=== PATIENT | male | born 1965 | race Hispanic/Latino ===

== ENCOUNTER 2023-12-19 14:30 | Inpatient (IN) | payer OTHER ==
[~2023-12-19 14:30] MED LIST: Iopamidol-370 76% 500 ML MDV (1 ML CHARGE) ONE
[2023-12-19 15:22] LABS: #Basophils 0.03 10x3/uL (0.0-0.2); #Eosinophils Less than 0.03 10x3/uL (0.0-0.7); %Basophils 0.5 % (0.0-1.0); %Eosinophils 0.2 % (0.0-10.0); %Monocytes 6.4 % (0.0-10.0); %Neutrophils 53.7 % (42.0-75.0); Hematocrit 40.8 % (42.0-52.0); Hemoglobin 13.3 g/dL (14.0-18.0); Mean Corpuscular HGB CONC 32.6 g/dL (32.0-36.0); Mean Corpuscular Hemoglobin 29.4 pg (27.0-31.0); Mean Corpuscular Volume 90.1 fL (78.0-98.0); Mean Platelet Volume 9.2 fL (7.4-10.4); Platelet Count 208 10x3/uL (130-400); RBC Distribution Width 16.9 % (11.5-14.5); Red Blood Cell (RBC) Count 4.53 mill/uL (4.70-6.10)
[2023-12-19 15:47] LABS: ALT (SGPT) 16 U/L (8-55); AST (SGOT) 21 U/L (5-34); Albumin 3.4 g/dL (3.5-5.0); Alkaline Phosphatase 68 U/L (40-110); Anion Gap 12 mmol/L (10-20); BUN (Urea Nitrogen) 17 mg/dL (8.4-25.7); Bilirubin, Total 0.1 mg/dL (0.2-1.2); Calc. Creatinine Clearance 0 mL/min (70-130); Calcium 8.6 mg/dL (7.8-10.44); Carbon Dioxide 20 mmol/L (22-29); Chloride 108 mmol/L (98-107); Estimated GFR 54; Globulin 3.4 g/dL (2.4-3.5); Glucose 108 mg/dL (70-105); Potassium 3.4 mmol/L (3.5-5.1); Protein, Total 6.8 g/dL (6.0-8.3); Sodium 137 mmol/L (136-145)
[2023-12-19 15:49] LABS: Troponin I 0.013 ng/mL (< 0.028)
[2023-12-19] MEDS ORDERED: Aspirin Chewable 81 MG TAB ONE (17:02)
[2023-12-19] MEDS ORDERED: Cefepime 2 GM VIAL ONE (17:02)
[2023-12-19] MEDS ORDERED: Sodium Chloride 0.9% 100 ML ONE (17:06)
[2023-12-19] MEDS ORDERED: Nitroglycerin 2% Ointment 1 INCH/1 GM Packet ONE (17:07)
[2023-12-19] MEDS ORDERED: Calcium Carbonate 500 MG ChewTAB PO PRN (17:32)
[2023-12-19] MEDS ORDERED: Ondansetron ODT 4 MG TAB PO PRN (17:32)
[2023-12-19] MEDS ORDERED: hydrALAZINE 20 MG/ML VIAL SLOW IVP PRN (17:32)
[2023-12-19 18:18] LABS: Troponin I 0.013 ng/mL (< 0.028)
[2023-12-19 19:53] VITALS: BMI 34.5
[2023-12-19] MEDS: Enoxaparin 40 MG (0.4 mL) SYRINGE SC SCH (20:10)
[2023-12-19] MEDS: Sodium Chloride 0.9% 1,000 ML IV SCH (20:10)
[2023-12-19] MEDS: Nicotine 21 MG PATCH TD SCH (20:10)
[2023-12-19] MEDS: Famotidine 20 MG TAB PO SCH (20:14)
[2023-12-19] MEDS: Vancomycin (BATCH) 2 GM in Premix 1 BAG IVPB SCH (20:36)
[2023-12-19] MEDS: Ketorolac Tromethamine 30 MG (1 mL) VIAL IVP PRN (20:45)
[2023-12-19 21:18] LABS: Troponin I 0.015 ng/mL (< 0.028)
[2023-12-19] MEDS: Nitroglycerin 2% Ointment 1 INCH/1 GM Packet TOP SCH (22:40)
[2023-12-19] MEDS: traMADol HCl 50 MG TAB PO PRN (23:06)
[2023-12-20] MEDS: Cefepime 1 GM in Sodium Chloride 0.9% 100 ML IVPB SCH (04:02)
[2023-12-20 04:35] LABS: #Basophils 0.04 10x3/uL (0.0-0.2); #Eosinophils Less than 0.03 10x3/uL (0.0-0.7); %Basophils 0.7 % (0.0-1.0); %Eosinophils 0.4 % (0.0-10.0); %Monocytes 8.3 % (0.0-10.0); %Neutrophils 33.4 % (42.0-75.0); Hematocrit 35.8 % (42.0-52.0); Hemoglobin 11.3 g/dL (14.0-18.0); Mean Corpuscular HGB CONC 31.6 g/dL (32.0-36.0); Mean Corpuscular Hemoglobin 29.6 pg (27.0-31.0); Mean Corpuscular Volume 93.7 fL (78.0-98.0); Mean Platelet Volume 8.9 fL (7.4-10.4); Platelet Count 185 10x3/uL (130-400); Red Blood Cell (RBC) Count 3.82 mill/uL (4.70-6.10)
[2023-12-20 04:48] LABS: Vancomycin, Random 11.4 ug/mL (See Comment)
[2023-12-20 04:50] LABS: ALT (SGPT) 12 U/L (8-55); AST (SGOT) 18 U/L (5-34); Albumin 2.9 g/dL (3.5-5.0); Alkaline Phosphatase 61 U/L (40-110); Anion Gap 11 mmol/L (10-20); BUN (Urea Nitrogen) 18 mg/dL (8.4-25.7); Bilirubin, Total 0.1 mg/dL (0.2-1.2); Calc. Creatinine Clearance 109 mL/min (70-130); Calcium 8.1 mg/dL (7.8-10.44); Carbon Dioxide 23 mmol/L (22-29); Cardiac Risk 5.9 (Less than 4.5); Chloride 109 mmol/L (98-107); Cholesterol 141 mg/dl (< 200 Desired); Estimated GFR 66; Globulin 2.9 g/dL (2.4-3.5); Glucose 112 mg/dL (70-105); HDL Cholesterol 24 mg/dL (>60 Neg Risk); Hemoglobin A1c 5.1 % (4.0-6.0); LDL Cholesterol, Calculated 86 mg/dL; Potassium 3.7 mmol/L (3.5-5.1); Protein, Total 5.8 g/dL (6.0-8.3); Sodium 139 mmol/L (136-145); Triglycerides 157 mg/dL (Less than 150)
[2023-12-20] MEDS: Vancomycin 1 GM in Premix 1 BAG IVPB SCH (05:41)
[2023-12-20] MEDS: Ondansetron PF 4 MG/2 ML Vial IVP PRN (05:48)
[2023-12-20] MEDS: Aspirin Chewable 81 MG TAB PO SCH (09:08)
[2023-12-20] MEDS: Enoxaparin 40 MG (0.4 mL) SYRINGE SC SCH (09:09)
[2023-12-20] MEDS ORDERED: Regadenoson 0.4 MG/5 ML SYRINGE ONE (11:44)
[2023-12-20] MEDS: Vancomycin (BATCH) 1.25 GM in Premix 1 BAG IVPB SCH (13:16)
[2023-12-20] MEDS: Cefepime 2 GM in Sodium Chloride 0.9% 100 ML IVPB SCH (16:00)
[2023-12-20] MEDS: Melatonin 3 MG TAB PO PRN (23:07)
[2023-12-21] MEDS: Acetaminophen 500 MG TAB PO PRN (08:51)
[2023-12-21 16:56] VITALS: BP 169/99; TEMP 97.8
== END 2023-12-21 17:06 | disposition home or self-care (01) | DRG 603 ==
LOC: ERS 14:30 → OBS 17:06 → OBSVTOIN 12-20 20:02
PROVIDERS: ADMIT Family Medicine; ATTEND Internal Medicine
DX: L03.116 Cellulitis of left lower limb (principal); N17.9 Acute kidney failure, unspecified; I25.10 Atherosclerotic heart disease of native coronary artery without angina pectoris; G89.29 Other chronic pain; M54.9 Dorsalgia, unspecified; I50.9 Heart failure, unspecified; I11.0 Hypertensive heart disease with heart failure; E87.6 Hypokalemia; F17.210 Nicotine dependence, cigarettes, uncomplicated; Z79.891 Long term (current) use of opiate analgesic; Z71.6 Tobacco abuse counseling; I25.2 Old myocardial infarction; Z95.5 Presence of coronary angioplasty implant and graft
CPT/HCPCS: 36415; 71045; 71275; 78452; 80053; 80061; 80202; 83036; 83880; 84484; 85025; 85379; 93005; 93017; 93306; 94760; 96365; 96366; 96368; 96372; 96375; 96376; A9500; G0378; J0692; J1650; J1885; J2405; J2785; J3370; J3370-JW; J7030; Q9967